=== PATIENT | male | born 1995 | race Caucasian/White ===

== ENCOUNTER 2024-04-20 23:51 | Inpatient (IN) | payer MEDICAID ==
[~2024-04-20] VITALS: Ht 170.2 cm; Wt 76.2 kg
[2024-04-21] MEDS ORDERED: MAGNESIUM 2 G PREMIX 50 ML IV ONE (02:45)
[2024-04-21] MEDS ORDERED: METHYLPREDNISOLONE SOD SUCC 125MG/2ML (ACT-O-VIAL) IV ONE (02:45)
[2024-04-21] MEDS: ALBUTEROL (0.083%) 2.5MG/3ML NEB HHN STA (03:17)
[2024-04-21 03:18] VITALS: PULSE 81; RESP 22; O2SAT 100
[2024-04-21] MEDS: IPRATROPIUM BROMIDE (0.02%) 0.5MG/2.5ML NEB HHN STA (03:18)
[2024-04-21] MEDS: METHYLPREDNISOLONE SOD SUCC 125MG/2ML (ACT-O-VIAL) IV NR (05:28)
[2024-04-21] MEDS: MAGNESIUM 2 G PREMIX 50 ML IV NR (05:28)
[2024-04-21] MEDS: ALBUTEROL (0.5%) 2.5MG/0.5ML NEB HHN ONE (05:38)
[2024-04-21 05:42] VITALS: PULSE 96; RESP 18; O2SAT 100
[2024-04-21 05:44] LABS: CHLORIDE 107 mEq/L (98-107); POTASSIUM 3.6 mEq/L (3.5-5.1); SODIUM 141 mEq/L (136-145)
[2024-04-21 05:45] LABS: CALCIUM 9.4 mg/dL (8.7-10.4); CARBON DIOXIDE 29 mEq/L (21-32)
[2024-04-21 05:50] LABS: BASOPHILS % 0.2 % (0.0-2.0); EOSINOPHILS % 0.6 % (0.0-5.0); GLUCOSE 119 mg/dL (70-105); HEMATOCRIT. 40.8 % (42.0-52.0); HEMOGLOBIN. 13.9 g/dL (14.0-18.0); LYMPHOCYTES % 8.1 % (20.0-50.0); MEAN CORPUSCULAR HEMOGLOBIN 31.8 pg (28.0-32.0); MEAN CORPUSCULAR HGB CONC 34.2 g/dL (31.0-37.0); MEAN CORPUSCULAR VOLUME 93.1 fL (80.0-94.0); MONOCYTES % 5.6 % (2.0-8.0); NEUTROPHILS % 85.5 % (40.0-76.0); PLATELET 297 x1000/uL (130-400); RED BLOOD CELL COUNT 4.38 mill/uL (4.7-6.1); RED CELL DISTRIBUTION WIDTH 13.3 % (11.6-14.6); UREA NITROGEN BLOOD 7 mg/dL (9-23); WHITE BLOOD COUNT 11.7 x1000/uL (4.5-11.0)
[2024-04-21] MEDS: METHYLPREDNISOLONE SOD SUCC 40MG/ML (ACT-O-VIAL) IV SCH ×2 (13:18→21:39)
[2024-04-21] MEDS: IPRATROPIUM/ALBUTEROL 0.5-3(2.5)MG/3ML NEB HHN SCH (13:47)
[2024-04-21 13:48] VITALS: PULSE 89; RESP 22; O2SAT 99
[2024-04-21] MEDS ORDERED: METHYLPREDNISOLONE SOD SUCC 40MG/ML (ACT-O-VIAL) IV SCH (14:45)
[2024-04-21] MEDS: FAMOTIDINE 20MG/2ML VIAL IV NR (15:20)
[2024-04-21] MEDS: MONTELUKAST SODIUM 10MG TABLET PO SCH (16:53)
[2024-04-21 17:08] VITALS: PULSE 99; RESP 24; O2SAT 99
[2024-04-21 18:30] VITALS: BP 106/60; PULSE 84; RESP 18; TEMP 37.11408; O2SAT 95
[2024-04-21] MEDS ORDERED: FLUT1AER IH (18:48)
[2024-04-21] MEDS ORDERED: MONT-39 PO (18:48)
[2024-04-21] MEDS ORDERED: CLAR10 PO (18:48)
[2024-04-21] MEDS ORDERED: CETI5TAB5 PO (18:48)
[2024-04-21] MEDS ORDERED: ALBU90AE INH (18:48)
[2024-04-21 20:00] VITALS: BP 90/42; PULSE 73; RESP 16; TEMP 36.44736; TEMP 36.4736; O2SAT 97
[2024-04-22] VITALS (10 sets, daily range): BP systolic 90–110; BP diastolic 41–57; PULSE 67–96; RESP 16–20; TEMP 36.114–36.83628; O2SAT 94–100
[2024-04-22] MEDS: ENOXAPARIN 40MG/0.4ML SYR SUBCUT SCH (00:10)
[2024-04-22 06:50] LABS: CHLORIDE 106 mEq/L (98-107); POTASSIUM 4.5 mEq/L (3.5-5.1)
[2024-04-22 06:51] LABS: CARBON DIOXIDE 26 mEq/L (21-32); SODIUM 138 mEq/L (136-145)
[2024-04-22 06:52] LABS: CALCIUM 9.7 mg/dL (8.7-10.4)
[2024-04-22 06:53] LABS: HEMATOCRIT. 40.9 % (42.0-52.0); HEMOGLOBIN. 13.8 g/dL (14.0-18.0); LYMPHOCYTES % 8.5 % (20.0-50.0); MEAN CORPUSCULAR HEMOGLOBIN 31.4 pg (28.0-32.0); MEAN CORPUSCULAR HGB CONC 33.7 g/dL (31.0-37.0); MEAN PLATELET VOLUME 7.3 fl (7.4-10.4); MONOCYTES % 2.6 % (2.0-8.0); NEUTROPHILS % 88.9 % (40.0-76.0); PLATELET 293 x1000/uL (130-400); RED CELL DISTRIBUTION WIDTH 13.2 % (11.6-14.6); WHITE BLOOD COUNT 17.3 x1000/uL (4.5-11.0)
[2024-04-22 06:56] LABS: CREATININE 0.8 mg/dL (0.6-1.3)
[2024-04-22 06:57] LABS: GLUCOSE 132 mg/dL (70-105); UREA NITROGEN BLOOD 10 mg/dL (9-23)
[2024-04-22] MEDS: PANTOPRAZOLE SODIUM 40 MG/VIAL IV SCH (08:42)
[2024-04-22] MEDS ORDERED: ACETAMINOPHEN 325MG TABLET PO PRN (10:30)
[2024-04-22] MEDS: GUAIFENESIN 200MG/10ML SUGAR FREE UDC PO PRN (12:06)
[2024-04-22] MEDS: AZITHROMYCIN 500 MG TABLET PO SCH (13:32)
[2024-04-23] VITALS (9 sets, daily range): BP systolic 93–108; BP diastolic 42–51; PULSE 63–84; RESP 17–19; TEMP 34.50276–36.55848; O2SAT 95–100
[2024-04-23] MEDS: IPRATROPIUM/ALBUTEROL 0.5-3(2.5)MG/3ML NEB HHN SCH (08:46)
[2024-04-23] MEDS: CETIRIZINE 10MG TABLET PO SCH (13:38)
[2024-04-23] MEDS ORDERED: METH4TAB95 MT (14:12)
[2024-04-23] MEDS ORDERED: ALBU90AE INH (14:12)
[2024-04-23] MEDS ORDERED: FLUT1AER IH (14:12)
[2024-04-23] MEDS ORDERED: AZIT250T12 PO (14:12)
== END 2024-04-23 18:24 | disposition home or self-care (01) | DRG 141 ==
LOC: ER 04-21 00:13 → EDBEDREQ 04-21 05:40 → EDBEDREQTM 04-21 05:40 → 5WST 04-21 12:47 → 8WST 04-21 18:23
PROVIDERS: ADMIT Internal Medicine; ATTEND Internal Medicine
DX: J45.901 Unspecified asthma with (acute) exacerbation (principal); J96.00 Acute respiratory failure, unspecified whether with hypoxia or hypercapnia; D72.829 Elevated white blood cell count, unspecified; Z20.822 Contact with and (suspected) exposure to COVID-19
CPT/HCPCS: 36415; 71045; 80048; 83735; 84145; 85025; 87426; 94640; 99285; J1650; J2470; J2919; J2920; J3475; J3490